=== PATIENT | female | born 1990 | race Caucasian/White ===

== ENCOUNTER 2017-09-03 22:55 | Emergency (ER) | payer OTHER ==
[~2017-09-03] VITALS: Ht 144.8 cm; Wt 44.4 kg
[~2017-09-03 22:55] MED LIST: FEOSOL325 MG PO; FLAGYL500 MG PO; FLEXERIL10 MG PO; LORTAB 5-325 M1 EACH PO; MICRONOR0.35 MG PO; MOTRIN IB200 MG PO; MOTRIN800 MG PO; NAPROSYN-EC500 MG PO; NAPROSYN500 MG PO; PEN-VEE K,VEET500 MG PO; PROMETHAZINE HC25 M1 PO; ULTRACET1 TABLET PO; VIBRAMYCIN100 MG PO; VICODIN,LORT1 TABLET PO; ZOFRAN ODT4 MG PO
[2017-09-04] MEDS ORDERED: VIBRAMYCIN100 MG PO (00:04)
[2017-09-04] MEDS ORDERED: HIBICLENS118 ML TP (00:06)
[2017-09-04 00:12] VITALS: BP 113/63
== END 2017-09-04 00:13 | disposition home or self-care (01) ==
LOC: EME 22:55
DX: L73.9 Follicular disorder, unspecified (principal)
CPT/HCPCS: 99281; 99283

== ENCOUNTER 2017-10-20 23:44 | Inpatient (IN) | payer OTHER ==
[~2017-10-20] VITALS: Ht 149.9 cm; Wt 38.9 kg
[~2017-10-20 23:44] MED LIST changes: +HIBICLENS118 ML TP
[2017-10-21 00:26] LABS: HEMATOCRIT 39.8 % (36.0-46.0); HEMOGLOBIN 13.8 G/DL (11.9-15.5); MCH 30.9 PG (29.0-34.0); MCHC 34.7 G/DL (30.0-36.0); PLATELET COUNT 426 K/uL (156-360); RBC DIS.WIDTH-SD 42.4 % (39-53); RED BLOOD COUNT 4.47 M/uL (3.80-5.20); WHITE BLOOD COUNT 18.4 K/uL (4.1-10.2)
[2017-10-21 00:38] LABS: CHLORIDE 93 mEq/L (99-109); POTASSIUM 3.8 mEq/L (3.7-5.4); SODIUM 137 mEq/L (136-147)
[2017-10-21 00:42] LABS: TOTAL BILIRUBIN 1.2 mg/dL (0.0-1.0)
[2017-10-21 00:56] LABS: ALBUMIN 5.2 g/dL (3.2-4.8)
[2017-10-21 00:59] LABS: GLUCOSE 92 mg/dL (70-99); QUANTITATIVE HCG < 4.0 MIU/ML; TOTAL PROTEIN 8.5 g/dL (6.4-8.3)
[2017-10-21 01:02] LABS: ALKALINE PHOSPHATASE 82 IU/L (3-129)
[2017-10-21 01:03] LABS: CREATININE 1.2 mg/dL (0.6-1.3); GFR ESTIMATE (CALCULATED) 57 mL/min/
[2017-10-21 01:04] LABS: AST (GOT) 28 IU/L (2-34); UREA NITROGEN (BUN) 16 mg/dL (9-23)
[2017-10-21 01:05] LABS: ALT (GPT) 14 IU/L (3-49)
[2017-10-21 01:46] LABS: LIPASE 14 U/L (1.0-51.0)
[2017-10-21 05:08] VITALS: BP 123/77
[2017-10-21 08:30] VITALS: BP 122/72
[2017-10-21 11:15] VITALS: BP 137/78
[2017-10-21 15:57] VITALS: BP 129/74
[2017-10-21 23:27] VITALS: BP 138/84
[2017-10-22 07:10] LABS: CHLORIDE 98 MEQ/L (99-109); SODIUM 139 MEQ/L (136-147); UREA NITROGEN (BUN) 4 mg/dL (9-23)
[2017-10-22 07:17] LABS: CREATININE 0.6 MG/DL (0.6-1.3); GFR ESTIMATE (CALCULATED) > 59 mL/min/; GLUCOSE 141 mg/dL (70-99)
[2017-10-22 07:26] VITALS: BP 119/69
[2017-10-22 07:32] LABS: BASOPHIL (%) 0.2 % (0-1); EOSINOPHIL (%) 0.1 % (0-5); HEMATOCRIT 35.3 % (36.0-46.0); HEMATOLOGY COMMENT 1 SN; HEMOGLOBIN 11.8 G/DL (11.9-15.5); IMMATURE GRANULOCYTE (%) 0.4 % (0.0-0.7); LYMPHOCYTE (%) 16.3 % (15-42); LYMPHOCYTE COUNT 1.7 K/uL (1.0-2.8); MCHC 33.4 G/DL (30.0-36.0); MCV 89.8 FL (83-99); MONOCYTE COUNT 0.8 K/uL (0-0.8); NEUTROPHIL COUNT 7.8 K/uL (1.8-6.4); PLAT.SUFFICIENCY ADEQUATE; PLATELET COUNT 297 K/uL (156-360); RBC DIS.WIDTH-SD 42.9 % (39-53); RED BLOOD COUNT 3.93 M/uL (3.80-5.20); WHITE BLOOD COUNT 10.4 K/uL (4.1-10.2)
[2017-10-22 14:00] LABS: APPEARANCE CLEAR ((CLEAR)); BILIRUBIN NEGATIVE; BLOOD NEGATIVE; COLOR YELLOW ((YELLOW)); GLUCOSE (STRIP) NEGATIVE; KETONES 5; LEUKOCYTES NEGATIVE; NITRITE NEGATIVE; PROTEIN (STRIP) NEGATIVE; SPECIFIC GRAVITY 1.008 (1.000-1.030); UROBILINOGEN 0.2 MG/DL (0.2-1.0)
[2017-10-22 14:43] LABS: BENZODIAZEPINES, URINE SCREEN Negative (200 ng/mL)
[2017-10-22 15:03] VITALS: BP 120/67
[2017-10-22 23:45] VITALS: BP 105/64
[2017-10-23 04:12] VITALS: BP 124/78
[2017-10-23 05:58] LABS: BASOPHIL (%) 0.3 % (0-1); EOSINOPHIL (%) 0.7 % (0-5); EOSINOPHIL COUNT 0.1 K/uL (0-0.3); HEMATOCRIT 35.1 % (36.0-46.0); HEMOGLOBIN 11.8 G/DL (11.9-15.5); IMMATURE GRANULOCYTE (%) 0.3 % (0.0-0.7); LYMPHOCYTE (%) 24.5 % (15-42); LYMPHOCYTE COUNT 1.7 K/uL (1.0-2.8); MCHC 33.6 G/DL (30.0-36.0); MCV 89.3 FL (83-99); MONOCYTE (%) 9.1 % (3-12); MONOCYTE COUNT 0.6 K/uL (0-0.8); NEUTROPHIL (%) 65.1 % (45-76); NEUTROPHIL COUNT 4.5 K/uL (1.8-6.4); PLATELET COUNT 261 K/uL (156-360); RBC DIS.WIDTH-CV 12.7 % (11.8-14.6); RBC DIS.WIDTH-SD 41.5 % (39-53); RED BLOOD COUNT 3.93 M/uL (3.80-5.20); WHITE BLOOD COUNT 6.9 K/uL (4.1-10.2)
[2017-10-23 06:22] LABS: CHLORIDE 101 MEQ/L (99-109); CREATININE 0.6 MG/DL (0.6-1.3); GFR ESTIMATE (CALCULATED) > 59 mL/min/; GLUCOSE 136 mg/dL (70-99); POTASSIUM 2.9 MEQ/L (3.7-5.4); SODIUM 139 MEQ/L (136-147); UREA NITROGEN (BUN) 3 mg/dL (9-23)
[2017-10-23 07:25] VITALS: BP 140/87
[2017-10-23 10:45] LABS: MAGNESIUM 1.6 mg/dl (1.3-2.7); PHOSPHORUS 1.7 mg/dL (2.5-4.9); PREALBUMIN 16.8 mg/dL (10-40); TRIGLYCERIDES 81 MG/DL (Normal: <150)
[2017-10-23 11:35] VITALS: BP 110/68
[2017-10-23 15:34] VITALS: BP 126/90
[2017-10-23 19:51] VITALS: BP 110/74
[2017-10-23 23:25] VITALS: BP 114/80
[2017-10-24 03:32] VITALS: BP 125/87
[2017-10-24 07:46] VITALS: BP 156/93
[2017-10-24 08:50] LABS: BASOPHIL (%) 0.3 % (0-1); EOSINOPHIL (%) 1.3 % (0-5); EOSINOPHIL COUNT 0.1 K/uL (0-0.3); HEMATOCRIT 37.1 % (36.0-46.0); HEMOGLOBIN 12.6 G/DL (11.9-15.5); IMMATURE GRANULOCYTE (%) 0.3 % (0.0-0.7); LYMPHOCYTE (%) 41.1 % (15-42); LYMPHOCYTE COUNT 3.2 K/uL (1.0-2.8); MCH 30.2 PG (29.0-34.0); MONOCYTE (%) 7.9 % (3-12); MONOCYTE COUNT 0.6 K/uL (0-0.8); NEUTROPHIL (%) 49.1 % (45-76); NEUTROPHIL COUNT 3.9 K/uL (1.8-6.4); PLATELET COUNT 284 K/uL (156-360); RBC DIS.WIDTH-CV 12.7 % (11.8-14.6); RBC DIS.WIDTH-SD 41.5 % (39-53); RED BLOOD COUNT 4.17 M/uL (3.80-5.20); WHITE BLOOD COUNT 7.9 K/uL (4.1-10.2)
[2017-10-24 10:02] LABS: CHLORIDE 103 MEQ/L (99-109); CREATININE 0.7 MG/DL (0.6-1.3); GFR ESTIMATE (CALCULATED) > 59 mL/min/; GLUCOSE 118 mg/dL (70-99); SODIUM 140 MEQ/L (136-147); UREA NITROGEN (BUN) 4 mg/dL (9-23)
[2017-10-24 10:06] LABS: POTASSIUM 3.5 MEQ/L (3.7-5.4)
[2017-10-24 11:21] VITALS: BP 120/76
[2017-10-24 15:48] VITALS: BP 133/88
[2017-10-24 20:01] VITALS: BP 131/86
[2017-10-24 23:42] VITALS: BP 127/59
[2017-10-25 04:00] VITALS: BP 117/76
[2017-10-25 08:28] VITALS: BP 133/81
[2017-10-25 11:48] VITALS: BP 158/74
[2017-10-25 16:30] VITALS: BP 109/60
[2017-10-25 19:18] VITALS: BP 102/59
[2017-10-25 23:10] VITALS: BP 117/63
[2017-10-26 04:00] VITALS: BP 125/78
[2017-10-26 08:24] VITALS: BP 98/57
[2017-10-26 12:17] VITALS: BP 100/56
[2017-10-26 16:33] VITALS: BP 99/62
[2017-10-26 23:57] VITALS: BP 102/64
[2017-10-27 04:49] VITALS: BP 110/63
[2017-10-27 07:31] VITALS: BP 91/52
[2017-10-27 07:36] LABS: CHLORIDE 100 MEQ/L (99-109); CREATININE 0.7 MG/DL (0.6-1.3); GFR ESTIMATE (CALCULATED) > 59 mL/min/; GLUCOSE 103 mg/dL (70-99); SODIUM 137 MEQ/L (136-147); UREA NITROGEN (BUN) 3 mg/dL (9-23)
[2017-10-27 07:40] LABS: POTASSIUM 4.3 MEQ/L (3.7-5.4)
[2017-10-27 16:26] VITALS: BP 97/47
[2017-10-27 19:31] VITALS: BP 156/87
[2017-10-27 23:15] VITALS: BP 109/59
[2017-10-28 07:25] VITALS: BP 113/55
[2017-10-28 08:02] LABS: CHLORIDE 101 MEQ/L (99-109); CREATININE 0.7 MG/DL (0.6-1.3); GFR ESTIMATE (CALCULATED) > 59 mL/min/; GLUCOSE 93 mg/dL (70-99); POTASSIUM 4.4 MEQ/L (3.7-5.4); SODIUM 138 MEQ/L (136-147); UREA NITROGEN (BUN) 5 mg/dL (9-23)
[2017-10-28 11:44] VITALS: BP 100/57
[2017-10-28 15:30] VITALS: BP 100/57
== END 2017-10-28 16:11 | disposition home or self-care (01) | DRG 914 ==
LOC: EME 23:44 → ENRESERV 10-21 03:42 → 3EAST 10-21 03:43 → EDOF 10-21 03:43 → 3EAST 10-21 03:43 → ENRESERV 10-21 03:53 → 3EAST 10-21 04:45
PROVIDERS: Physician Assistant
PROC: 0CJS8ZZ Inspection of Larynx, Via Natural or Artificial Opening Endoscopic (ICD-10-PCS; principal; 2017-10-24)
DX: S39.91XA Unspecified injury of abdomen, initial encounter (principal); T79.7XXA Traumatic subcutaneous emphysema, initial encounter; T71.9XXA Asphyxiation due to unspecified cause, initial encounter; E86.0 Dehydration; D72.829 Elevated white blood cell count, unspecified; E87.8 Other disorders of electrolyte and fluid balance, not elsewhere classified; F45.8 Other somatoform disorders; Y09 Assault by unspecified means; K21.9 Gastro-esophageal reflux disease without esophagitis; F17.200 Nicotine dependence, unspecified, uncomplicated; Y08.89XA Assault by other specified means, initial encounter; Y93.89 Activity, other specified; Y92.89 Other specified places as the place of occurrence of the external cause
CPT/HCPCS: 70498; 71260; 74177; 74220; 80048; 80053; 80306 90; 81003; 83690; 83735; 84100; 84134; 84478; 84702; 85025; 85027; 87040; 87086; 92610 GN; 99281; 99285; C9113; J0690; J2405; J2550; J2765; J3010; J3480; J7030; Q0169